=== PATIENT | male | born 1940 | race Caucasian/White ===

== ENCOUNTER 2023-05-13 13:07 | Outpatient (CLI) | payer OTHER ==
[2023-05-13 14:52] LABS: Hematocrit 43.7 % (38.8-50.0); Hemoglobin 14.7 g/dL (13.5-17.5); Mean Corpuscular HGB CONC 33.6 g/dL (32.0-36.0); Mean Corpuscular Hemoglobin 32.2 pg (27.0-33.0); Mean Corpuscular Volume 95.6 fl (81.2-95.1); Mean Platelet Volume 10.3 fl (7.4-10.4); Platelet Count 176 10x3/uL (150-450); RBC Distribution Width 14.6 % (11.5-14.5); Red Blood Cell (RBC) Count 4.57 10x6/uL (4.32-5.72); White Blood Cell (WBC) Count 7.8 10x3/uL (3.5-10.5)
[2023-05-13 15:05] LABS: Prothrombin Time 10.3 sec (9.5-12.1)
[2023-05-13 15:18] LABS: Anion Gap 18 mmol/L (10-20); BUN (Urea Nitrogen) 19 mg/dL (8.4-25.7); Calc. Creatinine Clearance 0 mL/min (70-130); Calcium 9.1 mg/dL (7.8-10.44); Carbon Dioxide 27 mmol/L (23-31); Chloride 101 mmol/L (98-107); Estimated GFR 68; Glucose 141 mg/dL (83-110); Potassium 4.1 mmol/L (3.5-5.1); Sodium 142 mmol/L (136-145)
== END 2023-05-13 13:08 | disposition home or self-care (01) ==
LOC: LABBT 13:07
PROVIDERS: ATTEND Orthopaedic Surgery
DX: Z01.812 Encounter for preprocedural laboratory examination (principal); M17.12 Unilateral primary osteoarthritis, left knee
CPT/HCPCS: 80048; 85027; 85610; 87081

== ENCOUNTER 2023-05-17 05:43 | Inpatient (IN) | payer OTHER ==
[2023-05-17] MEDS ORDERED: Sodium Chloride 0.9% 100 ML ONE (06:20)
[2023-05-17] MEDS ORDERED: Vancomycin (BATCH) 1.5 GM/300 ML BAG ONE (06:20)
[2023-05-17] MEDS ORDERED: Tranexamic Acid 1,000 MG/10 ML VIAL ONE (06:20)
[2023-05-17] MEDS ORDERED: Ondansetron PF 4 MG/2 ML Vial ONE (06:22)
[2023-05-17] MEDS ORDERED: PROPOFOL 60 ML ONE (06:22)
[2023-05-17] MEDS ORDERED: Dexamethasone 20 MG/5 ML VIAL ONE (06:22)
[2023-05-17] MEDS ORDERED: Lidocaine 1% PF 5 ML VIAL ONE (06:22)
[2023-05-17] MEDS ORDERED: Bupivacaine PF 0.5% 30 ML VIAL ONE ×2 (06:30→06:41)
[2023-05-17] MEDS ORDERED: Ondansetron PF 4 MG/2 ML Vial IVP PRN ×2 (06:31→07:45)
[2023-05-17] MEDS ORDERED: Promethazine HCl 25 MG/ML VIAL IM PRN ×3 (06:31→07:45)
[2023-05-17] MEDS ORDERED: fentaNYL 50 mcg/mL 1 mL Vial SLOW IVP PRN ×2 (06:31→07:40)
[2023-05-17] MEDS ORDERED: Zolpidem Tartrate 5 MG TAB PO PRN ×2 (06:31→07:45)
[2023-05-17] MEDS ORDERED: Acetaminophen 325 MG TAB PO PRN (06:31)
[2023-05-17] MEDS ORDERED: HYDROcodone/Acetaminophen 10/325 mg Tablet PO PRN ×2 (06:31)
[2023-05-17] MEDS ORDERED: diphenhydrAMINE 25 MG CAP PO PRN (06:31)
[2023-05-17] MEDS ORDERED: Insulin NPH Human Isophane 100 UNITS/ML (10 ML VIAL) SC PRN (06:32)
[2023-05-17] MEDS ORDERED: Lidocaine 1% (PF) 30 ML VIAL ONE (06:41)
[2023-05-17] MEDS ORDERED: Midazolam HCl 2 mg/2 ml Vial ONE (06:41)
[2023-05-17] MEDS ORDERED: fentaNYL 50 mcg/mL 1 mL Vial ONE ×2 (06:41→09:15)
[2023-05-17] MEDS ORDERED: HYDROmorphone 2 MG/ML VIAL SLOW IVP PRN (06:43)
[2023-05-17] MEDS ORDERED: Ondansetron HCl/PF 4 MG/2 ML Vial IVP PRN (06:43)
[2023-05-17] MEDS ORDERED: Insulin Regular 300 UNITS/3 ML VIAL SC PRN (06:46)
[2023-05-17] MEDS ORDERED: Bupivacaine HCl 0.5%/Epinephrine 1:200,000/PF 30 ml Vial ONE (07:00)
[2023-05-17] MEDS ORDERED: Clindamycin/D5W 900 mg/50 ml Premix Bag ONE (07:14)
[2023-05-17] MEDS ORDERED: GENTAMICIN ONE (07:14)
[2023-05-17] MEDS ORDERED: traMADol HCl 50 MG TAB PO PRN ×2 (07:45)
[2023-05-17] MEDS ORDERED: Ropivacaine 0.2% 550 ML 550 ML NERVE BLCK SCH (07:45)
[2023-05-17] MEDS ORDERED: PHENYLEPHRINE-NS 100 MCG/ML 10 ML SYRINGE ONE (08:32)
[2023-05-17] MEDS ORDERED: fentaNYL PF 100 MCG/2 ML SYRINGE ONE (09:25)
[2023-05-17] MEDS: Sodium Chloride 0.9% 1,000 ML IV SCH (10:15)
[2023-05-17] MEDS: Multivitamin W/ Minerals 1 TAB PO SCH (11:54)
[2023-05-17] MEDS: Aspirin 81 mg Enteric Coated Tablet PO SCH (11:54)
[2023-05-17] MEDS: glipiZIDE 10 MG TAB PO SCH (11:54)
[2023-05-17] MEDS: Hydrochlorothiazide 25 MG TAB PO SCH (11:54)
[2023-05-17] MEDS: Tamsulosin HCl 0.4 MG CAP PO SCH (11:54)
[2023-05-17] MEDS: Gabapentin 300 MG CAP PO SCH (11:54)
[2023-05-17] MEDS: metFORMIN 500 MG TAB PO SCH (11:54)
[2023-05-17] MEDS: Valsartan 80 MG TAB PO SCH (11:55)
[2023-05-17 12:01] VITALS: BMI 37.2
[2023-05-17] MEDS: Clindamycin/D5W 900 MG in Premix 1 BAG IVPB SCH ×2 (12:08→16:22)
[2023-05-17] MEDS: Ketorolac Tromethamine 30 MG (1 mL) VIAL IVP SCH (12:30)
[2023-05-17] MEDS: HYDROcodone/Acetaminophen 10/325 mg Tablet PO PRN (12:31)
[2023-05-17] MEDS ORDERED: Dextrose 5% in Water 1,000 ML IV PRN (14:32)
[2023-05-17] MEDS ORDERED: Dextrose 50% Abboject 50 ML SYRINGE SLOW IVP PRN (14:32)
[2023-05-17] MEDS ORDERED: Glucagon 1 MG/ML KIT IM PRN (14:32)
[2023-05-17] MEDS: Insulin Regular 300 UNITS/3 ML VIAL SC PRN (18:18)
[2023-05-17] MEDS: Rosuvastatin 10 MG TAB PO SCH (20:37)
[2023-05-18 05:20] LABS: Hematocrit 35.1 % (42.0-52.0); Hemoglobin 11.2 g/dL (14.0-18.0); Mean Corpuscular HGB CONC 31.9 g/dL (32.0-36.0); Mean Corpuscular Hemoglobin 31.4 pg (27.0-31.0); Mean Corpuscular Volume 98.3 fl (78.0-98.0); Mean Platelet Volume 10.1 fL (7.4-10.4); Platelet Count 135 10x3/uL (130-400); RBC Distribution Width 14.6 % (11.5-14.5); Red Blood Cell (RBC) Count 3.57 mill/uL (4.70-6.10); White Blood Cell (WBC) Count 7.7 10x3/uL (4.8-10.8)
[2023-05-18] MEDS: Ferrous Gluconate 324 MG TAB PO SCH (09:58)
[2023-05-18] MEDS: Senokot S 8.6-50 MG TAB PO SCH (10:02)
[2023-05-18] MEDS: Multivit, Therapeutic 1 TAB PO SCH (10:43)
[2023-05-18] MEDS: HYDROcodone/Acetaminophen 10/325 mg Tablet PO PRN (21:19)
[2023-05-19] MEDS ORDERED: Multivit, Therapeutic 1 TAB PO SCH (09:00)
[2023-05-20 16:33] VITALS: BP 156/69; TEMP 97.8
== END 2023-05-20 16:45 | disposition swing bed (61) | DRG 470 ==
LOC: SDC 05:43 → SURG A 09:42 → INTOOBSV 05-18 10:47 → OBSVTOIN 05-18 10:47
PROVIDERS: ADMIT Orthopaedic Surgery; ATTEND Orthopaedic Surgery
PROC: 0SRD0J9 Replacement of Left Knee Joint with Synthetic Substitute, Cemented, Open Approach (ICD-10-PCS; principal; 2023-05-17)
PROC: 3E033XZ Introduction of Vasopressor into Peripheral Vein, Percutaneous Approach (ICD-10-PCS; 2023-05-17)
PROC: 5A09457 Assistance with Respiratory Ventilation, 24-96 Consecutive Hours, Continuous Positive Airway Pressure (ICD-10-PCS; 2023-05-17)
DX: M17.12 Unilateral primary osteoarthritis, left knee (principal); E11.40 Type 2 diabetes mellitus with diabetic neuropathy, unspecified; N40.0 Benign prostatic hyperplasia without lower urinary tract symptoms; E78.5 Hyperlipidemia, unspecified; I10 Essential (primary) hypertension; C61 Malignant neoplasm of prostate; Z96.652 Presence of left artificial knee joint; J45.909 Unspecified asthma, uncomplicated; E78.00 Pure hypercholesterolemia, unspecified; Z82.49 Family history of ischemic heart disease and other diseases of the circulatory system; Z87.891 Personal history of nicotine dependence; Z79.84 Long term (current) use of oral hypoglycemic drugs; Z79.899 Other long term (current) drug therapy; Z88.1 Allergy status to other antibiotic agents; Z79.4 Long term (current) use of insulin; Z98.890 Other specified postprocedural states
CPT/HCPCS: 36415; 36416; 85027; 96365; 96366; 96375; 96376; A4306; C1776; G0378; J0665; J1100; J1580; J1815; J1885; J2001; J2250; J2405; J2704; J2795; J3010; J3370; J3490; J7050